=== PATIENT | male | born 2000 | race African-American/Black ===

== ENCOUNTER 2023-05-22 13:28 | Emergency (ER) | payer SELFPAY ==
[2023-05-22 13:48] VITALS: BP 131/74; PULSE 73; RESP 18; TEMP 36.6; O2SAT 100; BMI 25.0
--- NOTE | 2023-05-22 14:01 | ED_ITS ---
HPI - Abdominal Pain General Chief Complaint: Abdominal Pain Stated Complaint: sick T-4/ V/N/D/cough Time Seen by Provider: 05/22/23 13:57 History of Present Illness HPI narrative: Patient healthy 22-year-old male presents today with 4 days of nausea vomiting diarrhea. He says that he has had diarrhea ongoing for last 4-5 days however with vomiting he really does not feel like he is able to keep anything down. Other people in the family have had something similar but have since recovered. He denies any fever or chills. He sometimes feels lightheaded. He has a burning sensation throat. Mild left-sided abdominal pain. He sometimes has fever but is afebrile now. He reports that and said had something similar. says that other people at [facility] had similar symptoms. Related Data Previous Rx's Medication Instructions Recorded ondansetron 4 mg disintegrating 4 mg PO Q8H PRN nausea and 05/22/23 tablet vomiting #10 tabs Allergies Allergy/AdvReac Type Severity Reaction Status Date / Time No Known Drug Allergies Allergy Verified 05/22/23 13:56 Patient History Social History Smoking Status: Former smoker Smoking Status: Former smoker Alcohol type: other Substance Use Type: does not use Exam Initial Vital Signs Initial Vital Signs: Vital Signs Temperature 97.9 F 05/22/23 13:48 Pulse Rate 73 05/22/23 13:48 Respiratory Rate 18 05/22/23 13:48 Blood Pressure 131/74 05/22/23 13:48 Pulse Oximetry 100 05/22/23 13:48 Oxygen Delivery Method Room Air 05/22/23 13:48 GENERAL: Alert well-appearing 22-year-old male and in no acute distress. HEENT: Head atraumatic,EOMI, pupils reactive, face symmetric, moist mucous membranes CARDIOVASCULAR: Regular rate and rhythm without murmurs, rubs or gallops. RESPIRATORY: Breath sounds equal bilaterally, no wheezes rales or rhonchi. ABDOMEN: Soft, nontender. Normoactive bowel sounds all 4 quadrants. No guarding or rebound. EXTREMITIES: Normal range of motion, no clubbing or edema. Neurovascularly intact NEUROLOGICAL: Alert and oriented x4. SKIN: Warm, dry, no laceration, no petechiae, no rashes or lesions. Course Orders Ordered: ED Orders 05/22/23 14:30 Complete Blood Count AUTO DIFF Stat Comprehensive Metabolic Panel Stat Lipase Stat Discontinued Medications Al Hydrox/Mg Hydrox/Simethicone 20 ml/ Lidocaine HCl 15 ml 0 ml PO NOW ONE Stop: 05/22/23 14:02 Last Admin: 05/22/23 14:22 Dose: 35 ml Documented By: WENDI Sodium Chloride (Normal Saline 0.9%) 1,000 mls @ 1,000 mls/hr IV BOLUS ONE Stop: 05/22/23 15:00 Last Infusion: 05/22/23 15:27 Dose: Infused Documented By: Admin: 05/22/23 14:29 Dose: 1,000 mls/hr Documented By: WENDI Ondansetron HCl (Ondansetron 4 Mg Odt) 4 mg PO NOW PRN PRN Reason: Nausea And Vomiting Last Admin: 05/22/23 14:22 Dose: 4 mg Documented By: WENDI Ondansetron HCl (Ondansetron 4 Mg/2 Ml Inj) 4 mg IV NOW PRN PRN Reason: Nausea And Vomiting Vital Signs Vital signs: Vital Signs - 8 hr 05/22/23 13:48 05/22/23 14:36 05/22/23 15:41 Temperature 97.9 F Pulse Rate 73 91 H 80 Respiratory Rate 18 Blood Pressure 131/74 152/73 H 120/69 Pulse Oximetry 100 100 99 Oxygen Delivery Method Room Air Room Air Room Air MDM - Abdominal Pain Lab Data 05/22/23 14:30 05/22/23 14:30 Labs: Lab Results 05/22/23 Range/Units 14:30 WBC 4.8 (4.5-11.0) X10^3/uL RBC 5.87 (4.5-5.9) X10^6/uL Hgb 16.4 (13.5-17.5) g/dL Hct 48.5 (41-53) % MCV 82.5 (80-100) fL MCH 28.0 (26-34) PG MCHC 33.9 (30-36) % RDW 13.5 (11.6-14.8) % Plt Count 243 (150-400) X10^3/uL Neut % (Auto) 64.8 (50-75) % Lymph % (Auto) 22.4 L (25-40) % Sullivan % (Auto) 11.7 (3-14) % Eos % (Auto) 0.8 L (2-4) % Baso % (Auto) 0.3 (0-2) % Neut # (Auto) 3100 (2550-0494) /uL Lymph # (Auto) 1100 (3482-1518) /uL Sullivan # (Auto) 600 (0-900) /uL Eos # (Auto) 0 (0-450) /uL Baso # (Auto) 0 (0-100) /uL Sodium 138 (137-145) mmol/L Potassium 3.9 (3.4-5.1) mmol/L Chloride 103 (98-107) mmol/L Carbon Dioxide 26 (22-32) mmol/L BUN 12 (9-20) mg/dL Creatinine 1.02 (0.66-1.25) mg/dL Estimated GFR > 60 (>60) mL/min BUN/Creatinine Ratio 11.8 (6-22) Glucose 82 (70-100) mg/dL Calcium 9.5 (8.4-10.2) mg/dL Total Bilirubin 1.0 (0.2-1.3) mg/dL AST 76 H (17-59) IU/L ALT 43 (<50) IU/L Alkaline Phosphatase 72 (38-126) U/L Total Protein 7.8 (6.3-8.2) g/dL Albumin 4.6 (3.5-5.0) g/dL Globulin 3.2 (1.7-4.1) g/dL Albumin/Globulin Ratio 1.4 (1.0-2.8) Lipase 114 (23-300) U/L Point of care testing: Urine Dip Bedside Urine Glucose Negative Bedside Urine Bilirubin - Negative Bedside Urine Ketone - Negative Urine Specific Chandler 1.015 Bedside Urine Occult Blood - Negative Bedside Urine pH 6.0 Bedside Urine Protein - Negative Bedside Urine Urobilinogen - Negative Bedside Urine Nitrite - Negative Bedside Urine Leukocytes - Negative Esterase MDM Narrative Medical decision making narrative: Patient 22-year-old male who presents with 4 days of nausea diarrhea. He feels burning in his. He was given a GI cocktail she did not tolerate very well. He is not actually had any vomiting in the ED was given fluids and Zofran he feels a lot better. Blood work was ordered and reviewed. There is no significant electrolyte abnormality leukocytosis anemia or MEGHNA. His abdomen is soft and nontender. Symptoms are most consistent with a gastroenteritis. Many other people have also had gastroenteritis symptoms in the. Discussed oral rehydration technique prescribed him prescription for Zofran. At this time there is no need for any further workup. Discharge Plan Departure Patient Disposition: Home Clinical Impression: Gastroenteritis Instructions: DI for Viral Gastroenteritis -- Adult Activity Restrictions/Additional Instructions: *You have been diagnosed with gastroenteritis *What to do: At this time increase fluid intake as tolerated. He is nausea medication. Recommend Gatorade or Pedialyte or something like that. *Continue to take medications as directed Zofran 4 mg every 8 hours if needed for nausea or vomiting *Follow up with your primary care provider in 2-3 days or call [phone] *Return to ER if you should have persistent nausea vomiting abdominal pain dizziness lightheaded and or any new, worsening or concerning symptoms Prescriptions: New ondansetron 4 mg tablet,disintegrating 4 mg PO Q8H PRN (Reason: nausea and vomiting) Qty: 10 0RF Referrals: Miscellaneous,Doctor, [Primary Care Provider] - Stand Alone Forms: Patient Portal/API
[2023-05-22] MEDS: MAG HYDROX/ALUMINUM/SIMETH SUS 20 ML, LIDOCAINE VISCOUS 2% 15 ML PO (14:22)
[2023-05-22] MEDS: ONDANSETRON 4 MG ODT PO (14:22)
[2023-05-22] MEDS: SODIUM CHLORIDE 0.9% 1,000 ML 1000 ML IV (14:29)
[2023-05-22 14:36] VITALS: BP 152/73; PULSE 91; O2SAT 100
[2023-05-22 14:38] LABS: Add Manual Diff / Slide Review NO; Basophils Absolute Auto 0 /uL (0-100); Basophils Percent Auto 0.3 % (0-2); Eosinophils Absolute Auto 0 /uL (0-450); Eosinophils Percent Auto 0.8 % (2-4); Hematocrit 48.5 % (41-53); Hemoglobin 16.4 g/dL (13.5-17.5); Lymphocytes Absolute Auto 1100 /uL (1100-4500); Lymphocytes Percent Auto 22.4 % (25-40); Mean Corpuscular HGB Conc 33.9 % (30-36); Mean Corpuscular Volume 82.5 fL (80-100); Monocytes Absolute Auto 600 /uL (0-900); Monocytes Percent Auto 11.7 % (3-14); Neutrophils Absolute Auto 3100 /uL (1500-7000); Neutrophils Percent Auto 64.8 % (50-75); Platelet Count 243 X10^3/uL (150-400); Red Blood Cell Count 5.87 X10^6/uL (4.5-5.9); Red Cell Distribution Width 13.5 % (11.6-14.8); White Blood Cell Count 4.8 X10^3/uL (4.5-11.0)
--- NOTE | 2023-05-22 14:44 | PC.NURSE ---
Pt reports feeling like the medicine made it hard to swallow and hard to breath, but I know I'm breathing. Pt RR 22 and oxygen saturation 97% on RA. Provider made aware. Call light within reach and encouraged to us for needs.
[2023-05-22 14:49] LABS: Alanine Aminotransferase 43 IU/L (<50); Albumin 4.6 g/dL (3.5-5.0); Albumin Globulin Ratio 1.4 (1.0-2.8); Alkaline Phosphatase 72 U/L (38-126); Aspartate Aminotransferase 76 IU/L (17-59); BUN Creatinine Ratio 11.8 (6-22); Blood Urea Nitrogen 12 mg/dL (9-20); Calcium 9.5 mg/dL (8.4-10.2); Carbon Dioxide 26 mmol/L (22-32); Chloride 103 mmol/L (98-107); Estimated Glomerular Filt Rate > 60 mL/min (>60); Globulin 3.2 g/dL (1.7-4.1); Glucose 82 mg/dL (70-100); HEMOLYSIS 30 (0-50); Lipase 114 U/L (23-300); Potassium 3.9 mmol/L (3.4-5.1); Sodium 138 mmol/L (137-145); Total Protein 7.8 g/dL (6.3-8.2)
[2023-05-22 15:41] VITALS: BP 120/69; PULSE 80; O2SAT 99
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
== END 2023-05-22 15:42 | disposition home or self-care (01) ==
PROVIDERS: Emergency Provider Emergency Medicine
DX: K52.9 Noninfective gastroenteritis and colitis, unspecified (principal)
CPT/HCPCS: 36415; 80053; 81003; 83690; 85025; 96360; 99284

== ENCOUNTER 2024-02-10 21:08 | Emergency (ER) | payer SELFPAY ==
[2024-02-10 21:16] VITALS: BP 136/73; PULSE 80; RESP 17; TEMP 36.8; O2SAT 98; BMI 24.1
== END 2024-02-10 23:58 | disposition left against medical advice (07) ==
PROVIDERS: Emergency Provider Emergency Medicine
CPT/HCPCS: 99281

== ENCOUNTER 2024-06-19 17:09 | Emergency (ER) | payer SELFPAY ==
[2024-06-19 17:15] VITALS: BP 133/79; PULSE 76; RESP 14; TEMP 36.7; O2SAT 100; BMI 24.4
--- NOTE | 2024-06-19 17:56 | ED_ITS ---
HPI - Male Genitourinary <Yanci Yu PA-C - Last Filed: 06/19/24 19:22> General Chief complaint: Urogenital-Male Stated complaint: lightheaded, shaky, lower abd px Time Seen by Provider: 06/19/24 17:46 Source: patient Mode of arrival: Ambulatory History of Present Illness HPI Narrative: 23-year-old male with no reported past medical history presents to the ED with 3 days of lower abdominal pain, dysuria. Patient denies fever, chills, nausea, vomiting. Patient states that he has been constipated recently, had a bowel movement earlier today which was very small. No prior abdominal surgeries. Related Data Previous Rx's Medication Instructions Recorded ondansetron 4 mg disintegrating 4 mg PO Q8H PRN nausea and 05/22/23 tablet vomiting #10 tabs doxycycline hyclate 100 mg tablet 100 mg PO BID 10 days #20 tabs 06/19/24 Allergies Allergy/AdvReac Type Severity Reaction Status Date / Time No Known Drug Allergies Allergy Verified 06/19/24 17:15 Review of Systems <Yanci Yu PA-C - Last Filed: 06/19/24 19:22> Constitutional Constitutional: Denies chills, Denies fatigue, Denies fever(s), Denies frequent falls, Denies lethargy and Denies weakness Eyes Eyes: Denies change in vision, Denies eye discharge, Denies irritation and Denies loss of vision ENT Ears, Nose, Mouth, and Throat: Denies change in voice, Denies dizziness, Denies neck pain, Denies sore throat and Denies throat swelling Cardiovascular Cardiovascular: Denies chest pain, Denies irregular heart rhythm, Denies lightheadedness, Denies palpitations, Denies dyspnea, Denies dyspnea on exertion and Denies orthopnea Respiratory Respiratory: Denies cough, Denies dyspnea, Denies dyspnea on exertion and Denies wheezing Gastrointestinal Gastrointestinal: Reports abdominal pain, Denies change in bowel habits, Denies diarrhea, Denies nausea and Denies vomiting Genitourinary Genitourinary: Reports dysuria Musculoskeletal Musculoskeletal: Denies neck pain and Denies numbness Integumentary/Breasts Skin/Breast: Denies pruritus, Denies erythema, Denies rash and Denies wounds Neurologic Neurologic: Denies behavioral changes, Denies confusion, Denies dizziness, Denies frequent falls, Denies loss of vision, Denies numbness and Denies weakness Psychiatric Psychiatric: Denies anxiety, Denies behavioral changes, Denies confusion, Denies depression, Denies homicidal ideation and Denies suicidal ideation Endocrine Endocrine: Denies fatigue, Denies flushing and Denies palpitations Hematologic/Lymphatic Hematologic/Lymphatic: Denies easy bruising Allergic/Immunologic Allergic/Immunologic: Denies urticaria, Denies throat swelling and Denies wheezing Patient History <Yanci Yu PA-C - Last Filed: 06/19/24 19:22> Social History Smoking Status: Former smoker Smoking Status: Former smoker Alcohol type: other Exam <Yanci Yu PA-C - Last Filed: 06/19/24 19:22> Narrative Exam Narrative: Const General:?cooperative, healthy appearing and comfortable [facility] Head:?normal to inspection Ears:?hearing grossly normal bilaterally Nose:?external nose normal Face and sinus:?normal facial exam and sinuses nontender Mouth:?oral mucosae normal Throat:?posterior oropharynx normal Eyes General:?appearance normal, both eyes and all related structures Neck Neck:?normal visual inspection and no lymphadenopathy noted Resp Effort & Inspection:?normal respiratory effort Auscultation:?clear to auscultation bilaterally Cardio Rate:?regular rate Rhythm:?regular rhythm GI Abdomen is soft, nondistended. There is mild generalized tenderness to palpation, most in the LLQ Neuro General:?patient alert, patient awake and patient oriented x3 Initial Vital Signs Initial Vital Signs: Vital Signs Temperature 98.0 F 06/19/24 17:15 Pulse Rate 76 06/19/24 17:15 Respiratory Rate 14 06/19/24 17:15 Blood Pressure 133/79 06/19/24 17:15 Pulse Oximetry 100 06/19/24 17:15 Oxygen Delivery Method Room Air 06/19/24 17:15 <Manny Anthony MD - Last Filed: 06/20/24 03:32> Initial Vital Signs Initial Vital Signs: Vital Signs Temperature 98.0 F 06/19/24 17:15 Pulse Rate 76 06/19/24 17:15 Respiratory Rate 14 06/19/24 17:15 Blood Pressure 133/79 06/19/24 17:15 Pulse Oximetry 100 06/19/24 17:15 Oxygen Delivery Method Room Air 06/19/24 17:15 Course <Yanci Yu PA-C - Last Filed: 06/19/24 19:22> Orders Ordered: Discontinued Medications Ceftriaxone Sodium (Ceftriaxone 1,000 Mg Vial) 500 mg IM NOW ONE Stop: 06/19/24 19:03 Last Admin: 06/19/24 19:18 Dose: 500 mg Documented By: ELIZABETH Ciprofloxacin (Ciprofloxacin 250 Mg Tablet) 500 mg PO NOW ONE Stop: 06/19/24 19:06 Doxycycline Hyclate (Doxycycline Hyclate 100 Mg Tablet) 100 mg PO NOW ONE Stop: 06/19/24 19:21 Last Admin: 06/19/24 19:25 Dose: 100 mg Documented By: ELIZABETH Lidocaine HCl (Lidocaine 1% (Pf) 5 Ml) 2.1 ml INJ NOW ONE Stop: 06/19/24 19:03 Last Admin: 06/19/24 19:18 Dose: 2.1 ml Documented By: ELIZABETH Vital Signs Vital signs: Vital Signs - 8 hr 06/19/24 19:36 Pulse Rate 74 Respiratory Rate 15 Blood Pressure 130/78 Pulse Oximetry 100 Oxygen Delivery Method Room Air <Manny Anthony MD - Last Filed: 06/20/24 03:32> Orders Ordered: Discontinued Medications Ceftriaxone Sodium (Ceftriaxone 1,000 Mg Vial) 500 mg IM NOW ONE Stop: 06/19/24 19:03 Last Admin: 06/19/24 19:18 Dose: 500 mg Documented By: ELIZABETH Ciprofloxacin (Ciprofloxacin 250 Mg Tablet) 500 mg PO NOW ONE Stop: 06/19/24 19:06 Doxycycline Hyclate (Doxycycline Hyclate 100 Mg Tablet) 100 mg PO NOW ONE Stop: 06/19/24 19:21 Last Admin: 06/19/24 19:25 Dose: 100 mg Documented By: ELIZABETH Lidocaine HCl (Lidocaine 1% (Pf) 5 Ml) 2.1 ml INJ NOW ONE Stop: 06/19/24 19:03 Last Admin: 06/19/24 19:18 Dose: 2.1 ml Documented By: ELIZABETH Vital Signs Vital signs: Vital Signs - 8 hr 06/19/24 19:36 Pulse Rate 74 Respiratory Rate 15 Blood Pressure 130/78 Pulse Oximetry 100 Oxygen Delivery Method Room Air MDM - Male Genitourinary <Yanci Yu PA-C - Last Filed: 06/19/24 19:22> Lab Data Labs: Lab Results 06/19/24 Range/Units 17:19 Urine RBC None seen (0-5/HPF) Urine WBC 5-10/hpf H (0-5/HPF) Ur Squamous Epith Cells None seen (0-5/HPF) Urine Bacteria Occasional (0-1) (None) Ur Culture Indicated? Specimen cultured Vol Urine Centrifuged 10ml (spun) Ur Chlamydia DNA (PCR) Detected H N gonorrhoeae DNA (PCR) Not detected Urine Dip Bedside Urine Glucose Negative Bedside Urine Bilirubin - Negative Bedside Urine Ketone - Negative Urine Specific Outlook 1.010 Bedside Urine Occult Blood - Negative Bedside Urine pH 6.5 Bedside Urine Protein - Negative Bedside Urine Urobilinogen - Negative Bedside Urine Nitrite - Negative Bedside Urine Leukocytes + 70 Esterase MDM Narrative Medical decision making narrative: 23-year-old male with no reported past medical history presents to the ED with 3 days of lower abdominal pain, dysuria. Concern for UTI versus GC versus constipation versus other intra-abdominal pathology versus other. UA positive for UTI. Urine WBC 5-10, positive leukocyte esterase. Urine also positive for chlamydia. Patient given 500 mg of ceftriaxone IM, doxycycline 100mg p.o. prescription given for doxy. Counseled patient, recommend partner testing, treatment. Recommend MiraLax for constipation. ED return precautions discussed with patient. Patient verbalized understanding. Medical records reviewed: Yes <Manny Anthony MD - Last Filed: 06/20/24 03:32> Lab Data Labs: Lab Results 06/19/24 Range/Units 17:19 Urine RBC None seen (0-5/HPF) Urine WBC 5-10/hpf H (0-5/HPF) Ur Squamous Epith Cells None seen (0-5/HPF) Urine Bacteria Occasional (0-1) (None) Ur Culture Indicated? Specimen cultured Vol Urine Centrifuged 10ml (spun) Ur Chlamydia DNA (PCR) Detected H N gonorrhoeae DNA (PCR) Not detected Urine Dip Bedside Urine Glucose Negative Bedside Urine Bilirubin - Negative Bedside Urine Ketone - Negative Urine Specific Outlook 1.010 Bedside Urine Occult Blood - Negative Bedside Urine pH 6.5 Bedside Urine Protein - Negative Bedside Urine Urobilinogen - Negative Bedside Urine Nitrite - Negative Bedside Urine Leukocytes + 70 Esterase Discharge Plan Departure Patient Disposition: Home Clinical Impression: Chlamydia Urinary tract infection Qualifiers: Urinary tract infection type: acute cystitis Hematuria presence: without hematuria Qualified Code(s): N30.00 - Acute cystitis without hematuria Instructions: DI for Chlamydia, DI for Urinary Tract Infection (UTI) Activity Restrictions/Additional Instructions: You were evaluated in the ED today for abdominal pain and burning with urination. You tested positive for a urinary tract infection as well as chlamydia. You are being prescribed antibiotics. It is important that your partners are treated as well. Return to the ED if you have worsening symptoms. Prescriptions: New doxycycline hyclate 100 mg tablet 100 mg PO BID 10 Days Qty: 20 0RF No Action ondansetron 4 mg tablet,disintegrating 4 mg PO Q8H PRN (Reason: nausea and vomiting) Qty: 10 0RF Referrals: Miscellaneous,DoctorMD [Primary Care Provider] - Stand Alone Forms: Patient Portal/API/Survey ED Sign-out <Manny Anthony MD - Last Filed: 06/20/24 03:32> Cosign ED Attending Cosignature Attestation: I was immediately available in the department for consultation. This documentation has been reviewed and I agree with assessment and plan. Supervised by Manny Anthony MD
[2024-06-19 18:01] LABS: Urine Volume 10mL (spun)
[2024-06-19 18:02] LABS: Bacteria Urine Occasional (0-1); Culture Indicated Urine Specimen Cultured; RBC Urine None Seen (0-5/HPF); Squamous Epithelial Cell Urine None Seen (0-5/HPF); WBC Urine 5-10/HPF (0-5/HPF)
[2024-06-19 18:56] LABS: Urine N gonorrhoeae NOT DETECTED
[2024-06-19 18:59] LABS: Urine Chlamydia DETECTED
[2024-06-19] MEDS: cefTRIAXone 1,000 MG VIAL 500 MG IM (19:18)
[2024-06-19] MEDS: LIDOCAINE 1% (PF) 5 ML 2.1 ML INJ (19:18)
[2024-06-19] MEDS: DOXYCYCLINE HYCLATE 100 MG TABLET PO (19:25)
[2024-06-19 19:36] VITALS: BP 130/78; PULSE 74; RESP 15; O2SAT 100
== END 2024-06-19 19:36 | disposition home or self-care (01) ==
PROVIDERS: Emergency Medicine; Emergency Provider Student in an Organized Health Care Education/Training Program
DX: N30.00 Acute cystitis without hematuria (principal); A74.9 Chlamydial infection, unspecified; R30.0 Dysuria
CPT/HCPCS: 81003; 81015; 87086; 87491; 87591; 96372; 99283; J0696

== ENCOUNTER 2024-07-06 07:32 | Emergency (ER) | payer SELFPAY ==
[2024-07-06 07:40] VITALS: BP 145/73; PULSE 61; RESP 20; TEMP 37.1; O2SAT 97; BMI 24.4
--- NOTE | 2024-07-06 08:06 | ED.RECABL ---
HPI - Recheck/Abnormal Lab/Rx General Chief Complaint: Recheck/Abnormal Lab/Rx Stated Complaint: abd pain, lower back pain Time Seen by Provider: 07/06/24 08:06 Source: patient Mode of arrival: Ambulatory History of Present Illness HPI narrative: 23-year-old young man comes in for STI testing. Tested positive on June 19 for chlamydia at the time was having constipation and mild dysuria. He completed his antibiotics, his partner has been treated as well. He comes in for confirmation of treatment and requesting full STI testing including blood work. Currently is asymptomatic. Has been doing some reading on the Internet and has some questions about some skin irregularities on his penis. Related Data Previous Rx's Medication Instructions Recorded ondansetron 4 mg disintegrating 4 mg PO Q8H PRN nausea and 05/22/23 tablet vomiting #10 tabs Allergies Allergy/AdvReac Type Severity Reaction Status Date / Time No Known Drug Allergies Allergy Verified 06/19/24 17:15 Review of Systems Review of Systems Narrative: Pertinent positive and negative findings as per HPI Patient History Social History Smoking Status: Former smoker Smoking Status: Former smoker Alcohol type: other Exam Initial Vital Signs Initial Vital Signs: Vital Signs Temperature 98.8 F 07/06/24 07:40 Pulse Rate 61 07/06/24 07:40 Respiratory Rate 20 07/06/24 07:40 Blood Pressure 145/73 H 07/06/24 07:40 Pulse Oximetry 97 07/06/24 07:40 Oxygen Delivery Method Room Air 07/06/24 07:40 General: Alert appropriate in no acute distress Respiratory: Able to speak in full sentences, no obvious respiratory distress Skin: No obvious rashes, warm and dry Neurologic: Grossly intact no obvious asymmetries or abnormalities Psych: appropriate insight and affect, cooperative Genitals: Healthy-appearing external genitals, no obvious papules vesicles or warts. The areas of concern over the glans of his penis and small area along the distal shaft are skin discolorations and some dermal changes that are not infectious Course Vital Signs Vital signs: Vital Signs - 8 hr 07/06/24 07:40 Temperature 98.8 F Pulse Rate 61 Respiratory Rate 20 Blood Pressure 145/73 H Pulse Oximetry 97 Oxygen Delivery Method Room Air MDM - Recheck/Abnormal Lab/Rx MDM Narrative Medical decision making narrative: 23-year-old gentleman who comes in for test of cure after testing positive for chlamydia June 19. Also requests laboratory STI testing. Questions regarding some skin changes on his penis. Reassurance is given the small area of the glans appears to be consistent with ?pearly papules of the penis, and area over the shaft is simply discoloration in the skin. Neither of these are consistent with chancre, vesicle, warts and I am not concerned with STI physical symptoms of the genitals. Reassurance is given. Gonorrhea chlamydia, HIV, hep B, syphilis are all tested for. Discussed the importance of signing up for his patient portal so he can check on follow up results. A let him know that we do not have a robust method for routine outpatient follow up for STI testing. He is safe for discharge at this time Discharge Plan Departure Patient Disposition: Home Clinical Impression: Screen for sexually transmitted diseases Activity Restrictions/Additional Instructions: Thank you for being proactive with your sexual health. Today we checked for gonorrhea, chlamydia, HIV, syphilis, hepatitis-B. You will need to check your patient portal to follow up on results. If you have questions on results we will need to schedule an appointment with your primary care physician The areas of concern on your penis are normal skin changes and do not look like any of the sexually transmitted infections that can cause things like warts, chancer, moluscum, herpes or any of the other frightening things that you may have read about on the Internet. Please consider using condoms for continuing sexual health safety. If you find that you are getting worse or develop any new symptoms, please feel free to return to the emergency department for further evaluation. Prescriptions: No Action ondansetron 4 mg tablet,disintegrating 4 mg PO Q8H PRN (Reason: nausea and vomiting) Qty: 10 0RF Referrals: Miscellaneous,Doctor, MD [Primary Care Provider] - Stand Alone Forms: Patient Portal/API/Survey
[2024-07-06 08:57] VITALS: RESP 16
[2024-07-06 10:12] LABS: Urine N gonorrhoeae NOT DETECTED
[2024-07-06 10:28] LABS: Urine Chlamydia NOT DETECTED
[2024-07-06 12:23] LABS: HIV 1 & 2 Ab/Ag 4th Gen Combo NEGATIVE (NEGATIVE)
[2024-07-07 05:08] LABS: RPR Screen Non Reactive (Non Reactive)
[2024-07-08 05:40] LABS: HBsAg Screen Negative (Negative); Hepatitis A Antibody IgM Negative (Negative); Hepatitis B Core Antibody IgM Negative (Negative); Hepatitis C Antibody Non Reactive (Non Reactive)
== END 2024-07-06 08:58 | disposition home or self-care (01) ==
PROVIDERS: Emergency Provider Emergency Medicine
DX: Z11.3 Encounter for screening for infections with a predominantly sexual mode of transmission (principal); R23.8 Other skin changes
CPT/HCPCS: 36415; 80074; 86592; 87389; 87491; 87591; 99281; 99283

== ENCOUNTER 2024-09-28 23:47 | Emergency (ER) | payer SELFPAY ==
[2024-09-29 00:01] VITALS: BP 123/78; PULSE 76; RESP 18; TEMP 37.3; O2SAT 99; BMI 24.4
[2024-09-29 00:46] LABS: Bacteria Urine None Seen; RBC Urine 10-30/HPF (0-5/HPF); Squamous Epithelial Cell Urine None Seen (0-5/HPF); Urine Volume 10mL (spun); WBC Urine None Seen (0-5/HPF)
[2024-09-29 00:47] LABS: Culture Indicated Urine Cult Not Indicated
--- NOTE | 2024-09-29 02:20 | ED.MALEGU ---
HPI - Male Genitourinary General Chief complaint: Urogenital-Male Stated complaint: Pain and blood with urination Time Seen by Provider: 09/28/24 23:55 Source: patient Mode of arrival: Ambulatory History of Present Illness HPI Narrative: This is a 24-year-old previously healthy male with urethral pain and hematuria. States that earlier in the day he was holding his penis firmly to prevent urination. After that, he noticed some blood draining from his urethra and had some penile pain with urination. No flank pain no fevers no vomiting he is able to void spontaneously he is not anticoagulated. Related Data Home Medications Medication Instructions Recorded Confirmed No Known Home Medications 09/29/24 09/29/24 Allergies Allergy/AdvReac Type Severity Reaction Status Date / Time No Known Drug Allergies Allergy Verified 06/19/24 17:15 Patient History Social History Smoking Status: Never smoker Smoking Status: Never smoker Alcohol type: other Exam Initial Vital Signs Initial Vital Signs: Vital Signs Temperature 99.1 F 09/29/24 00:01 Pulse Rate 76 09/29/24 00:01 Respiratory Rate 18 09/29/24 00:01 Blood Pressure 123/78 09/29/24 00:01 Pulse Oximetry 99 09/29/24 00:01 Oxygen Delivery Method Room Air 09/29/24 00:01 Vital signs are unremarkable Const Other: appears to be in no distress Other: normal appearing circumcised male genitalia. No active urethral bleeding, no palpable deformity of the penis. No inguinal adenopathy Course Orders Ordered: ED Orders 09/29/24 00:15 Urine Microscopic Stat Vital Signs Vital signs: Vital Signs - 8 hr 09/29/24 00:01 Temperature 99.1 F Pulse Rate 76 Respiratory Rate 18 Blood Pressure 123/78 Pulse Oximetry 99 Oxygen Delivery Method Room Air MDM - Male Genitourinary Lab Data Lab results narrative: urinalysis is remarkable for blood without signs of infection Labs: Lab Results 09/29/24 Range/Units 00:15 Urine RBC 10-30/hpf H (0-5/HPF) Urine WBC None seen (0-5/HPF) Ur Squamous Epith Cells None seen (0-5/HPF) Urine Bacteria None seen (None) Ur Culture Indicated? Cult not indicated Vol Urine Centrifuged 10ml (spun) Urine Dip Bedside Urine Glucose Negative Bedside Urine Bilirubin - Negative Bedside Urine Ketone - Negative Urine Specific [place] 1.010 Bedside Urine Occult Blood ++ Bedside Urine pH 7.0 Bedside Urine Protein - Negative Bedside Urine Urobilinogen - Negative Bedside Urine Nitrite - Negative Bedside Urine Leukocytes - Negative Esterase MDM Narrative Medical decision making narrative: 24-year-old male with by no urethral trauma and urethral bleeding. This is not penetrating trauma he is able to void spontaneously I think that I conservative approach is appropriate at this time. He is advised to rechecked is still having hematuria and a couple of days or immediately if unable to void Discharge Plan Departure Patient Disposition: Home Clinical Impression: Injury of male urethra Qualifiers: Encounter type: initial encounter Qualified Code(s): S37.30XA - Unspecified injury of urethra, initial encounter Activity Restrictions/Additional Instructions: emergency department evaluation tonight is reassuring. I think that you did in fact cause of minor injury to urethra by pinching your penis. As long as you are urinating okay I do not think that we need to do anything else at this point. Get adequate fluids. Avoid ibuprofen naproxen or aspirin as they could make bleeding worse. If you have not stopped bleeding and a couple of days, recheck in urgent care primary care or in the emergency department. If you find that you are unable to urinate, return to the emergency department immediately. Prescriptions: No Action No Known Home Medications Referrals: Miscellaneous,[facility] [Primary Care Provider] - Stand Alone Forms: Patient Portal/API/Survey
[2024-09-29 02:33] VITALS: BP 130/75; PULSE 86; RESP 15; O2SAT 100
== END 2024-09-29 02:33 | disposition home or self-care (01) ==
PROVIDERS: Emergency Provider Emergency Medicine
DX: S37.30XA Unspecified injury of urethra, initial encounter (principal); X58.XXXA Exposure to other specified factors, initial encounter
CPT/HCPCS: 81003; 81015; 99282